=== PATIENT | male | born 1945 | race Native Hawaiian/Other Pacific Islander ===

== ENCOUNTER 2018-12-24 10:07 | Outpatient (CLI) | payer OTHER | END 2018-12-24 22:29 | disposition home or self-care (01) | LOC: MRI 10:07 | DX: M51.36 Other intervertebral disc degeneration, lumbar region (principal) ==

== ENCOUNTER 2018-12-25 10:25 | Outpatient (CLI) | payer OTHER | END 2018-12-25 20:12 | disposition home or self-care (01) | LOC: CT 10:25 | DX: M51.36 Other intervertebral disc degeneration, lumbar region (principal) ==